=== PATIENT | male | born 2000 | race Caucasian/White ===

== ENCOUNTER 2024-11-15 09:25 | Outpatient (AMB) | payer OTHER, SELFPAY ==
--- NOTE | 2024-11-15 09:40 | MHC.PC.OV ---
Vital Signs 11/15/24 09:44 Height 5 ft 8.5 in Weight 208 lb BMI 31.2 BP 128/78 Blood Pressure Location Rt brachial Position Sitting Pulse 76 Pulse Source Pulse Oximeter Temp 97.3 F Temp Source Temporal Artery Scan Pulse Oximetry (%) 97 Oxygen Delivery Method Room Air Intake Visit Reasons: establish care Sorting Cows Worker Required: No Accompanied by: Uncle Allergies No Known Allergies Allergy (Verified 11/15/24 09:52) Medication List - Last Reconciled 11/15/24 by TRANG Kurtz No Known Home Meds Tobacco use date assessed: 11/15/24 Dental Screening Dental Screen Date: 11/15/24 Did you have a dental visit in the last 12 months?: No Did you have a dental problem in the last 6 months where you did not have access to dental care?: No Was dental information given to patient?: Patient has dentist HPI establish care HPI Details Previous PCP: moved from [place] in the process of getting medical record Last visit:May, Last PE: same Specialist: no OBGYN:n/a Past medical history: not sure about past medical history, uncle in the process of getting his records Medications: no Family HX: father DM, grandmother Dementia Problem: flu: last flu season covid: x2 in [place] The patient a 24-year-old male with mental impairment presenting with his uncle Uncle reports that the patient was moved up in June from [place] to stay with him in his Reports that he is in the process of getting the patient to medical paperwork Reports that he does not know of any past medical history Reports that he needs a physical to get the patient in the program Reports that the patient graduated high school and just been staying home Reports that the patient is independent with ADLs but sometimes forget to turn off the Sinks For seeing the reports that the patient can make simple meals like a grilled cheese sometimes he will leave the sink running, graduated from high school Patient denies shortness of breath, chest pain, palpitation, dizziness He denies abdominal pain, constipation or diarrhea Denies urinary symptoms We will need patient records to determine immunization status A physical exam was completed today, labs were ordered for patient to do as soon as possible The patient does take sometime to respond when asked questions The patient replied with short answers and does not explain further [facility] Medical History (Updated 02/13/25 @ 10:35 by TRANG Kurtz) No pertinent past medical history Surgical History No pertinent past surgical history Family History Maternal Grandmother Dementia Father Diabetes Mother No problems noted. Social History Housing: House Alcohol intake: never Patient Tobacco Use Status: Never used Tobacco e-Cigarette/Vaping Use: Never Used Second Hand Smoke Exposure: No service: No Current occupational status: unemployed Cognitive needs: No Hearing needs: No Vision needs: No Questionnaire PHQ-9 Over the last 2 weeks, how often have you been bothered by any of the following problems? 1. Little interest or pleasure in doing things: nearly every day 2. Feeling down, depressed, or hopeless: not at all 3. Trouble falling or staying asleep, or sleeping too much: not at all 4. Feeling tired or having little energy: not at all 5. Poor appetite or overeating: not at all 6. Feeling bad about yourself - or that you are a failure or have let yourself or your family down: not at all 7. Trouble concentrating on things, such as reading the newspaper or watching television: not at all 8. Moving or speaking so slowly that other people could have noticed. Or the opposite - being so fidgety or restless that you have been moving around a lot more than usual: not at all 9. Thoughts that you would be better off or of hurting yourself in some way: not at all Total score: 3 Depression Screening Interpretation: Positive Depression Screening Done: Yes 04387 - PHQ-9 Billing: Yes Source: Developed by Drs. Lui Clemons, Dyan Rome, Boni Lemus and colleagues, with an educational amanda from [employer]. Thrive Questionnaire Date Thrive assessed: 11/15/24 I am a: Parent/Caregiver What is your living situation today?: I have a steady place to live Within the past 12 months, did the food you bought not last and you didn't have the money to get more?: Often true Within the past 12 months, did you worry whether your food would run out before you got money to buy more?: I choose not to answer this question Do you have trouble paying for medicines?: No Do you have trouble getting transportation to medical appointments?: No Do you have trouble paying your heating and electricity bill?: No Do you have trouble taking care of your child, family member or friend?: No Do you have trouble with day-to-day activities such as bathing, preparing meals, shopping, managing finances, etc.?: No Are you currently unemployed and looking for a job?: I choose not to answer this question Are you interested in more education?: I choose not to answer this question Please select the resources that you would like help with: None Currently or been in a relationship where the following occur: I choose not to answer THRIVE Score: 1 AUDIT C Alcohol Use Questionnaire (AUDIT-C) 1. How often do you have a drink containing alcohol?: Never Total Score: 0 Score Reviewed/Action Taken: No GABINO-7 AMB Questionnaire GABINO-7 Date GABINO - 7 assessed: 11/15/24 Feeling nervous, anxious, or on edge: 0 = Not at all Not being able to stop or control worryin = Not at all Worrying too much about different things: 0 = Not at all Trouble relaxin = Not at all Being so restless that it is hard to sit still: 0 = Not at all Becoming easily annoyed or irritable: 0 = Not at all Feeling afraid as if something awful might happen: 0 = Not at all Total GABINO-7 score (0-4 normal; 5-9 mild; 10-14 moderate; 15-21 severe): 0 Source: Developed by Drs. Lui Clemons, Dyan Rome, Boni Lemus and colleagues, with an educational amanda from [employer]. GABINO-7 Assessment Billing GABINO-7 Assessment Tool: GABINO-7 Assessment 07614 Review of Systems Const Details: Denies chills, Denies fatigue, Denies fever(s), Denies headache(s) and Denies weakness HEENT Denies change in vision, Denies dizziness, Denies headache(s), Denies hearing loss, Denies nasal congestion, Denies sinus pain, Denies sinus pressure and Denies sore throat Card Denies chest pain, Denies lightheadedness, Denies dyspnea and Denies other (palpitations) Resp Denies cough, Denies dyspnea and Denies wheezing GI Denies abdominal pain, Denies melena, Denies hematochezia, Denies change in bowel habits, Denies dyspepsia and Denies nausea Denies hematuria and Denies dysuria Musc Denies abnormal gait, Denies myalgias, Denies arthralgias, Denies numbness and Denies tingling Skin/Breast Denies rash, Denies unusual bruising and Denies wounds Neuro Denies abnormal gait, Denies dizziness, Denies headache(s), Denies memory loss, Denies numbness, Denies Sensory deficit (Neuro), Denies tingling and Denies weakness Psych Denies anxiety, Denies depression and Denies memory loss Endo Denies cold intolerance, Denies fatigue, Denies heat intolerance, Denies polydipsia and Denies polyuria Taqueria/Lymph Denies easy bleeding and Denies easy bruising Aller/Immun Denies wheezing Physical exam (Primary Care) Vital Signs: Last Vital Signs Temp 97.3 F 11/15/24 09:44 Pulse 76 11/15/24 09:44 BP 128/78 11/15/24 09:44 Pulse Ox 97 11/15/24 09:44 Oxygen Delivery Method Room Air 11/15/24 09:44 BMI result Body Mass Index 31.2 Tobacco/Smoking Status: Tobacco use Status Tobacco use date assessed 11/15/24 11/15/24 09:52 Patient Tobacco Use Status Never used Tobacco 11/15/24 09:52 e-Cigarette/Vaping Use Never Used 11/15/24 09:52 PHQ-9: PHQ-9 Score PHQ-9: Total score 3 11/15/24 10:02 Depression Screening Interpretation: Positive Thrive Assessment: Date of Thrive Assessment Date Thrive assessed 11/15/24 11/15/24 09:43 Currently or been in a relationship where the following occur: I choose not to answer Const Other: General: no acute distress, well developed, alert and awake Nutritional Appearance: well nourished Orientation/consciousness: patient oriented x3 HENMT Head: Yes normocephalic and Yes atraumatic Ears: hearing grossly normal bilaterally and TM's normal bilaterally General nose exam: Normal external nose present and Normal nares present Mouth: Normal oral and palatal mucosa present and moist mucous membranes Teeth and gingiva: dentition normal Throat: Yes oropharynx normal Eyes Pupils: Equal, round and reactive pupils present and Pupil accommodation reflex normal EOM: EOMs intact bilaterally Neck Neck: Yes normal visual inspection, Yes no lymphadenopathy and Yes trachea midline Thyroid: Thyroid normal Carotids: no bruits Lymphatic: no lymphadenopathy noted Chest Chest palpation & inspection: normal inspection of the chest Resp Effort & Inspection: normal respiratory effort Auscultation: clear to auscultation bilaterally Cardio Rate: regular rate Rhythm: regular rhythm Heart sounds: S1 normal heart sound present, S2 normal heart sound present, no gallops, no murmurs and no rubs Bruits: no abdominal aortic bruits and no carotid bruits GI Palpation (GI): No Abdominal aortic bruit present, Soft to palpation, nontender, No hepatosplenomegaly present and No Rebound tenderness present Auscultation: normal bowel sounds General: Yes no CVA tenderness Back/Spine/Pelvis Back: no CVA tenderness Cervical Spine: cervical ROM normal and No Cervical spine tenderness Thoracic/Lumbar Spine: thoraco-lumbar ROM normal, No pain with thoraco-lumbar ROM, No thoracic spinal tenderness and No lumbar spinal tenderness Skin General: warm and dry. Normal skin color. Normal skin turgor Lesions: no lesions Rashes: no rashes Trauma: no lacerations or abrasions Wounds: no wounds Nails: normal Neuro General: patient oriented x3, gait normal and CN's II-XI intact bilaterally Cranial nerves: Yes Equal, round and reactive pupils present Cognition (Neuro): normal cognition Gait exam (Neuro): Normal gait present Motor exam (neuro): 5/5 motor strength present throughout Sensory Exam: No Sensory deficit (Neuro) Deep tendon reflexes (DTR's): Right patellar reflex intensity grade: 2+ and Left patellar reflex intensity grade: 2+ Extrem General: Yes normal to inspection, No edema and No calf tenderness Psych Appearance: grossly normal Affect: normal affect Attitude: cooperative Thought process: Normal thought process present Coding Level of Care Code New Pt Prev Care 18-39yr([id number] Diagnoses Encounter for medical examination to establish care Z00.00 Additional Codes GABINO-7 Assessment Billing - GABINO-7 Assessment Tool: GABINO-7 Assessment 31355 ([id number]) PHQ-9 - 46372 - PHQ-9 Billing: Yes ([id number]) Time Spent (min) 26 Assessment & Plan Assessment & Plan (1) Encounter for medical examination to establish care: Code(s): Z - Encounter for general adult medical examination without abnormal findings Category: Medical Plan: Patient is presenting today to establish care and also to have an annual physical completed. The patient presented with his uncle who is staying with. Reports that he is in the process of getting the records his medical records from [place]. Immunization status unclear-we will wait for medical records. Labs were ordered for physical, discussed with patient and unable to get these done as soon as possible. Plan To return in 1 year for his next annual physical examination Orders: Orders Complete Blood Count Auto Diff 11/15/24 Z00.00 - Encounter for general adult medical examination without abnormal findings Glucose Fasting 11/15/24 Z00.00 - Encounter for general adult medical examination without abnormal findings Lipid Panel 11/15/24 Z00.00 - Encounter for general adult medical examination without abnormal findings Comprehensive [place]. Panel Fast 11/15/24 Z00. - Encounter for general adult medical examination without abnormal findings UA CC w/rflx Micro + Cult 11/15/24 Z00.00 - Encounter for general adult medical examination without abnormal findings Vitamin D 25-OH Total 11/15/24 Z00.00 - Encounter for general adult medical examination without abnormal findings
[2024-11-15 09:44] VITALS: BP 128/78; PULSE 76; TEMP 36.3; O2SAT 97; BMI 31.2
== END 2024-11-15 10:18 | disposition home or self-care (01) ==
DX: Z00.00 Encounter for general adult medical examination without abnormal findings (principal)

== ENCOUNTER → 2024-11-15 09:25 | Outpatient (BNVA) | payer OTHER, SELFPAY | DX: Z00.00 Encounter for general adult medical examination without abnormal findings (principal) | CPT/HCPCS: 96127; 99385 ==

== ENCOUNTER 2025-01-30 08:40 | Outpatient (REF) | payer OTHER, SELFPAY ==
[2025-01-30 10:03] LABS: MANUAL DIFF FLAG NO
[2025-01-30 10:07] LABS: Basophils Percent Auto 0.4 % (0-2); Eosinophils Absolute Auto 0.1 X10*3/uL (0.0-0.4); Eosinophils Percent Auto 2.2 % (0-4); Hematocrit 45.7 % (42.0-52.0); Hemoglobin 15.5 g/dl (14.0-18.0); Imm Gran Abs Auto 0.02 X10*3/uL (0.00-0.03); Imm Gran Pct Auto 0.4 % (0.0-0.4); Lymphocytes Absolute Auto 2.1 X10*3/uL (1.2-4.9); Lymphocytes Percent Auto 43.1 % (20-40); Mean Corpuscular HGB Conc 33.9 g/dl (31.0-36.0); Mean Corpuscular Hemoglobin 30.6 pg (27.0-33.0); Mean Corpuscular Volume 90.1 fL (80.0-98.0); Mean Platelet Volume 9.6 fL (9.4-12.4); Monocytes Absolute Auto 0.4 X10*3/uL (0.1-1.2); Monocytes Percent Auto 8.5 % (2-11); Neutrophils Absolute Auto 2.3 x10*3/uL (2.0-8.3); Neutrophils Percent Auto 45.4 % (45-73); Platelet Count 326 X10*3/uL (160-400); Red Blood Count 5.07 X10*6/uL (4.60-5.80); Red Cell Distribution Width 11.9 % (11.0-16.0)
[2025-01-30 10:11] LABS: Appearance Urine Clear; Color Urine Yellow; Glucose Urine UA Negative (Negative); Leukocyte Esterase Urine Negative (Negative); Nitrite Urine Negative (Negative); Urine Blood Negative (Negative); Urine Ketones Negative (Negative); Urine Protein Negative (Neg-Trace)
[2025-01-30 10:53] LABS: Alanine Aminotransferase 33 U/L (0-40); Albumin Level 4.7 g/dL (3.5-5.0); Alkaline Phosphatase 68 U/L (39-117); Anion Gap 11 (12-20); Aspartate Amino Transferase 30 U/L (5-37); Bilirubin Total 0.6 mg/dL (0.0-1.0); Blood Urea Nitrogen 15 mg/dL (9-16); Calcium 9.9 mg/dL (8.4-10.2); Carbon Dioxide 29 mmol/L (22-29); Chloride 105 mmol/L (96-108); Cholesterol 130 mg/dL (<200); Estimated Glomerular Filt Rate > 60; Glucose Fasting 83 mg/dL (60-99); HDL Cholesterol 36 mg/dL (>40); LDL Cholesterol Calculated 76 mg/dL (<100); Potassium 4.2 mmol/L (3.3-5.1); Sodium 141 mmol/L (135-145); Total Protein 7.8 g/dL (6.5-8.0); Triglycerides 91 mg/dL (<150)
[2025-01-30 10:56] LABS: Vitamin D 25-OH Total 29.3 ng/mL (>30)
[2025-02-02 11:13] LABS: TS Negative Control Passed; TS Panel A 0; TS Panel B 0; TS Positive Control Passed; TSpotTB Negative (Negative)
== END 2025-01-30 08:41 | disposition home or self-care (01) ==
LOC: HO.HMGCLDS 08:40
DX: Z00.00 Encounter for general adult medical examination without abnormal findings (principal); F84.0 Autistic disorder; Z11.1 Encounter for screening for respiratory tuberculosis
CPT/HCPCS: 36415; 80053; 80061; 81003; 82306; 85025; 86481